=== PATIENT | male | born 1950 | race African-American/Black ===

== ENCOUNTER 2016-08-28 12:22 | Day surgery (SDC) | payer BC ==
[~2016-08-28] VITALS: Ht 180.3 cm; Wt 74.8 kg
[~2016-08-28 12:22] MED LIST: ALPR0.5T6 PO; ASPI-496 PO; BP Med; LISI-167 PO; OMEP-110 PO; ONDANSETRON 2MG/ML, 2ML ONE; PROPOFOL 10 MG/ML, 20ML ONE; SIMV20TA3 PO; SUCCINYLCHOLINE 20 MG/ML, 10ML ONE; TAMS-11 PO
[2016-08-28] MEDS ORDERED: AMLO5TAB2 PO (12:48)
[2016-08-28 12:50] VITALS: BP 135/86
[2016-08-28] MEDS ORDERED: LACTATED RINGERS 1,000 ML IV SCH (12:57)
[2016-08-28] MEDS ORDERED: FENTANYL PF 100 MCG/2ML IV PRN (14:00)
[2016-08-28] MEDS ORDERED: ONDANSETRON 2MG/ML, 2ML IVPush PRN (14:00)
[2016-08-28] MEDS ORDERED: HYDROmorphone 1 MG/ML, 1ML IV PRN (14:00)
[2016-08-28] MEDS ORDERED: LABETALOL 5MG/ML, 20ML IV PRN (14:00)
[2016-08-28] MEDS ORDERED: OXYcodone 5 MG/5 ML ORAL.SOL UDC PO PRN (14:00)
[2016-08-28] MEDS ORDERED: hydrALAzine 20 MG/ML, 1ML IV PRN (14:00)
[2016-08-28] MEDS ORDERED: ACETAMINOPHEN 650 MG/20.3 ML UDC ONE (15:29)
[2016-08-28] MEDS ORDERED: ACETAMINOPHEN 650 MG/20.3 ML UDC PO PRN (15:30)
[2016-08-28] MEDS ORDERED: ACETAMINOPHEN 325 MG TABLET ONE (15:30)
[2016-08-28] MEDS ORDERED: ONDANSETRON 2MG/ML, 2ML ONE (15:37)
[2016-08-28] MEDS ORDERED: hydrALAzine 20 MG/ML, 1ML ONE (15:51)
== END 2016-08-28 17:30 | disposition home or self-care (01) ==
LOC: OUT 12:22
PROVIDERS: ATTEND Internal Medicine Geriatric Medicine
DX: K83.1 Obstruction of bile duct (principal); K86.1 Other chronic pancreatitis; K86.89 Other specified diseases of pancreas; I47.1 Supraventricular tachycardia
CPT/HCPCS: 43238; 43276; 74328; 88172; 88173; 88177; 88307; C1769; C1894; C2625; J0330; J0360; J2405; J2704; J7120

== ENCOUNTER → 2016-08-30 | Outpatient (CLI) | payer BC ==
[~2016-08-30] MED LIST changes: +AMLO5TAB2 PO; +OMNIPAQUE 350 MG/ML, 100ML BOTTLE ONE; -ONDANSETRON 2MG/ML, 2ML ONE; -PROPOFOL 10 MG/ML, 20ML ONE; -SUCCINYLCHOLINE 20 MG/ML, 10ML ONE
== END | disposition home or self-care (01) ==
LOC: CFH 09:45
PROVIDERS: ATTEND Internal Medicine Hematology & Oncology
DX: D75.1 Secondary polycythemia (principal); N28.1 Cyst of kidney, acquired; M47.896 Other spondylosis, lumbar region; K83.8 Other specified diseases of biliary tract; M51.36 Other intervertebral disc degeneration, lumbar region
CPT/HCPCS: 74170; Q9967

== ENCOUNTER → 2016-09-19 | Outpatient (CLI) | payer BC ==
[~2016-09-19] MED LIST changes: +HYDROCHLOROTHIAZIDE; -OMNIPAQUE 350 MG/ML, 100ML BOTTLE ONE
[2016-09-19 09:24] LABS: ASPARTATE AMINO TRANSFERASE 18 U/L (15-37); BLOOD UREA NITROGEN 19 mg/dL (7-18)
== END | disposition home or self-care (01) ==
LOC: STAR 08:13
PROVIDERS: ATTEND Surgery
DX: C25.9 Malignant neoplasm of pancreas, unspecified (principal)
CPT/HCPCS: 36415; 80053; 85025; 85610

== ENCOUNTER 2016-09-26 05:27 | Day surgery (SDC) | payer BC ==
[~2016-09-26] VITALS: Ht 180.3 cm; Wt 78.0 kg
[2016-09-26] MEDS ORDERED: LACTATED RINGERS 1,000 ML IV SCH (06:08)
[2016-09-26 06:10] VITALS: BP 159/96
[2016-09-26] MEDS ORDERED: LIDOCAINE 1%, 2ML SQ PRN (06:30)
[2016-09-26] MEDS ORDERED: HEPARIN 1,000 UNITS/ML, 10ML ONE (06:56)
[2016-09-26] MEDS ORDERED: BUPIVACAINE/PF-EPI 0.5% 1:200K ONE ×2 (06:56→08:07)
[2016-09-26] MEDS ORDERED: MIDAZOLAM 1 MG/ML, 2ML ONE (07:24)
[2016-09-26] MEDS ORDERED: FENTANYL PF 250 MCG/5ML ONE (07:24)
[2016-09-26] MEDS ORDERED: MEPERIDINE/PF 25MG/0.5ML IVPush PRN (07:30)
[2016-09-26] MEDS ORDERED: EPHEDRINE 50 MG/ML, 1ML IVPush PRN (07:30)
[2016-09-26] MEDS ORDERED: HYDROmorphone 1 MG/ML, 1ML IV PRN (07:30)
[2016-09-26] MEDS ORDERED: PROMETHAZINE 25 MG/ML, 1ML IV PRN (07:30)
[2016-09-26] MEDS ORDERED: MIDAZOLAM 1 MG/ML, 2ML IV PRN (07:30)
[2016-09-26] MEDS ORDERED: ACETAMINOPHEN 325 MG TABLET PO PRN (07:30)
[2016-09-26] MEDS ORDERED: ONDANSETRON 2MG/ML, 2ML IVPush PRN (07:30)
[2016-09-26] MEDS ORDERED: LABETALOL 5MG/ML, 20ML IV PRN (07:30)
[2016-09-26] MEDS ORDERED: FENTANYL PF 100 MCG/2ML IV PRN (07:30)
[2016-09-26] MEDS ORDERED: OXYcodone 5 MG/5 ML ORAL.SOL UDC PO PRN (07:30)
[2016-09-26] MEDS ORDERED: hydrALAzine 20 MG/ML, 1ML IV PRN (07:30)
[2016-09-26] MEDS ORDERED: HYDROcodone/APAP 7.5-325MG/15ML UDC PO PRN (07:30)
[2016-09-26] MEDS ORDERED: KETOROLAC 30 MG/1 ML IV PRN (07:30)
[2016-09-26] MEDS ORDERED: DEXAMETHASONE 4 MG/ML, 1ML ONE (07:37)
[2016-09-26] MEDS ORDERED: PROPOFOL 10 MG/ML, 20ML ONE (07:37)
[2016-09-26] MEDS ORDERED: PROPOFOL 10 MG/ML, 50ML ONE (07:37)
[2016-09-26] MEDS ORDERED: CEFAZOLIN 1,000 MG ONE (07:37)
[2016-09-26] MEDS ORDERED: ONDANSETRON 2MG/ML, 2ML ONE (07:37)
== END 2016-09-26 10:30 | disposition home or self-care (01) ==
LOC: OUT 05:27
PROVIDERS: ATTEND Surgery
DX: C25.9 Malignant neoplasm of pancreas, unspecified (principal); I10 Essential (primary) hypertension; E78.5 Hyperlipidemia, unspecified; K21.9 Gastro-esophageal reflux disease without esophagitis; Z82.3 Family history of stroke
CPT/HCPCS: 36571; 77001; C1788; J0690; J1100; J1644; J2250; J2405; J2704; J3010; J7120

== ENCOUNTER 2017-01-07 10:52 | Inpatient (IN) | payer MEDICARE ==
[~2017-01-07] VITALS: Ht 180.3 cm; Wt 73.6 kg
[~2017-01-07 10:52] MED LIST changes: +CIPR500T3 PO; +HYDR12.58 PO; +METR500T PO; +ONDA4TAB7 PO
[2017-01-07] MEDS ORDERED: SODIUM CHLORIDE FLUSH 10ML SYR IVF ONE (12:00)
[2017-01-07 12:14] LABS: HEMOGLOBIN 15.8 g/dL (13.7-18.0); WHITE BLOOD COUNT 3.4 x10^3/uL (3.4-10)
[2017-01-07 12:25] LABS: ASPARTATE AMINO TRANSFERASE 156 U/L (15-37); BLOOD UREA NITROGEN 11 mg/dL (7-18)
[2017-01-07] MEDS ORDERED: SODIUM CHLORIDE 0.9% 1,000 ML IV ONE (15:01)
[2017-01-07] MEDS ORDERED: SODIUM CHLORIDE FLUSH 10ML SYR IVF PRN (15:30)
[2017-01-07 17:08] VITALS: BP 163/87
[2017-01-07 18:44] VITALS: BP 143/85
[2017-01-07] MEDS ORDERED: DIPHENHYDRAMINE 50 MG/ML, 1ML IVPush PRN (21:00)
[2017-01-07 21:08] VITALS: BP 140/86
[2017-01-07] MEDS ORDERED: METOCLOPRAMIDE 5 MG/ML, 2ML IVPush PRN (21:30)
[2017-01-07] MEDS ORDERED: morphine SULFATE 10 MG/ML, 1ML IVPush PRN (21:30)
[2017-01-07] MEDS ORDERED: ENALAPRILAT 1.25 MG/ML, 2ML IVPush PRN (21:30)
[2017-01-07] MEDS ORDERED: OXYcodone IR 5MG TABLET PO PRN (21:30)
[2017-01-07] MEDS ORDERED: PROMETHAZINE 25 MG/ML, 1ML IM PRN (21:30)
[2017-01-07] MEDS ORDERED: LABETALOL 5MG/ML, 20ML IVPush PRN (21:30)
[2017-01-07] MEDS ORDERED: ONDANSETRON 2MG/ML, 2ML IVPush PRN (21:30)
[2017-01-07] MEDS: SODIUM CHLORIDE 0.9% 1,000 ML IV SCH (21:51)
[2017-01-08 02:00] VITALS: BP 144/84
[2017-01-08 04:36] LABS: HEMATOCRIT 41.4 % (39.2-51.8); HEMOGLOBIN 13.7 g/dL (13.7-18.0); WHITE BLOOD COUNT 3.1 x10^3/uL (3.4-10)
[2017-01-08 04:44] LABS: BLOOD UREA NITROGEN 9 mg/dL (7-18)
[2017-01-08 04:48] LABS: ASPARTATE AMINO TRANSFERASE 170 U/L (15-37)
[2017-01-08] MEDS: SODIUM CHLORIDE 0.9% 1,000 ML IV SCH (07:30)
[2017-01-08] MEDS ORDERED: OMEPRAZOLE 20 MG CAPSULE.DR PO SCH (08:00)
[2017-01-08 08:15] VITALS: BP 159/87
[2017-01-08] MEDS ORDERED: HYDROCHLOROTHIAZIDE 12.5 MG CAPSULE PO SCH (09:00)
[2017-01-08] MEDS ORDERED: AMLODIPINE 5 MG TABLET PO SCH (09:00)
[2017-01-08] MEDS ORDERED: CEFD300C37 PO (11:02)
[2017-01-08] MEDS ORDERED: TRAM50TA2 PO ×2 (11:16→11:26)
[2017-01-08] MEDS ORDERED: POLY17PO5 PO (11:16)
== END 2017-01-08 12:15 | disposition home or self-care (01) | DRG 920 ==
LOC: OR 15:00 → EDIP 15:01 → OR 15:22 → SUATTDRO 16:49 → 4EST 16:54 → 3NW 20:58
PROVIDERS: ADMIT Internal Medicine; ATTEND Internal Medicine
DX: T85.590A Other mechanical complication of bile duct prosthesis, initial encounter (principal); K80.51 Calculus of bile duct without cholangitis or cholecystitis with obstruction; I47.1 Supraventricular tachycardia; I10 Essential (primary) hypertension; N39.0 Urinary tract infection, site not specified; E78.5 Hyperlipidemia, unspecified; E80.6 Other disorders of bilirubin metabolism; K21.9 Gastro-esophageal reflux disease without esophagitis; Y83.8 Other surgical procedures as the cause of abnormal reaction of the patient, or of later complication, without mention of misadventure at the time of the procedure; Y92.89 Other specified places as the place of occurrence of the external cause; Z82.3 Family history of stroke; Z82.49 Family history of ischemic heart disease and other diseases of the circulatory system; Z85.07 Personal history of malignant neoplasm of pancreas; Z92.21 Personal history of antineoplastic chemotherapy
CPT/HCPCS: 36415; 76700; 80053; 81001; 83605; 83690; 83735; 84100; 85025; 85610; 85730; 87040; 87086; 96360; 96361; J7030

== ENCOUNTER → 2017-09-27 | Outpatient (CLI) | payer MEDICARE ==
[~2017-09-27] MED LIST changes: +CEFD300C37 PO; +OMNIPAQUE 350 MG/ML, 100ML BOTTLE ONE; +POLY17PO5 PO; +TRAM50TA2 PO
== END | disposition home or self-care (01) ==
LOC: CFH 08:37
PROVIDERS: ATTEND Internal Medicine Hematology & Oncology
DX: C25.9 Malignant neoplasm of pancreas, unspecified (principal); D75.1 Secondary polycythemia; N28.1 Cyst of kidney, acquired
CPT/HCPCS: 74160; 82565; Q9967

== ENCOUNTER → 2017-12-02 | Outpatient (CLI) | payer MEDICARE | END | disposition home or self-care (01) | LOC: CFH 09:28 | PROVIDERS: ATTEND Internal Medicine Hematology & Oncology | DX: N28.1 Cyst of kidney, acquired (principal); R59.0 Localized enlarged lymph nodes; C25.9 Malignant neoplasm of pancreas, unspecified; D75.1 Secondary polycythemia | CPT/HCPCS: 74170; 82565; Q9967 ==

== ENCOUNTER → 2018-06-06 | Outpatient (CLI) | payer MEDICARE ==
[~2018-06-06] MED LIST changes: +AMLO-150 PO; -AMLO5TAB2 PO; -HYDR12.58 PO; +HYDROCHLOROTH12.5 MG PO
== END | disposition home or self-care (01) ==
LOC: CFH 11:39
PROVIDERS: ATTEND Internal Medicine Hematology & Oncology
DX: N28.1 Cyst of kidney, acquired (principal); D75.1 Secondary polycythemia; I70.0 Atherosclerosis of aorta; M51.36 Other intervertebral disc degeneration, lumbar region; Z90.411 Acquired partial absence of pancreas; Z85.07 Personal history of malignant neoplasm of pancreas
CPT/HCPCS: 71260; 74177; Q9967

== ENCOUNTER 2019-05-23 09:55 | Emergency (ER) | payer MEDICARE ==
[~2019-05-23] VITALS: Ht 180.3 cm; Wt 72.0 kg
[~2019-05-23 09:55] MED LIST changes: -OMNIPAQUE 350 MG/ML, 100ML BOTTLE ONE
--- NOTE | 2019-05-23 10:20 | NUR ---
PT AMBULATORY WITH STEADY GAIT TO ROOM. PT GIVEN GOWN AND ASKED TO CHANGE.
--- NOTE | 2019-05-23 10:27 | NUR ---
68 Y/O MALE PRESENTS TO ED WITH C/O "STARTED WITH THE FLU. THEN A SINUS INFECTION AND THEN PNA. IT WAS TWO WEEKS AGO. A CT WAS DONE ON THE . THEY TOLD ME I HAD PNA. I'VE BEEN ON ABX AND STEROIDS. AT THE END IT STARTED COMING BACK AND IT DIDN'T GO AWAY. THE PAIN WAS IN THE LOWER BACK AND IN THE MIDDLE ON THE RIGHT." PT PLACED ON CONT PULSE OX,NIBP, SALES REPRESENTATIVE EDUCATION COURSES. NO C/O N/V/D, TRAUMA, SYNCOPE, CP.
--- NOTE | 2019-05-23 10:29 | NUR ---
NO C/O CP OR COUGING.
[2019-05-23 11:07] LABS: BASOPHILS # (AUTO) 0.01 x10^3/uL (0-0.1); BASOPHILS % (AUTO) 0 % (0-1); EOSINOPHILS # (AUTO) 0.04 x10^3/uL (0-0.4); EOSINOPHILS % (AUTO) 1 % (1-7); LYMPHOCYTES # (AUTO) 1.11 x10^3/uL (1-3.4); LYMPHOCYTES % (AUTO) 18 % (22-44); MD NO; MEAN CORPUSCULAR HEMOGLOBIN 28.3 pg (27.5-34.5); MEAN CORPUSCULAR VOLUME 88.6 fL (81-97); MEAN PLATELET VOLUME 8.2 fL (7.4-10.4); MONOCYTES # (AUTO) 0.52 x10^3/uL (0.2-0.8); MONOCYTES % (AUTO) 9 % (2-9); NEUTROPHILS # (AUTO) 4.44 x10^3/uL (1.8-6.8); NEUTROPHILS % (AUTO) 73 % (42-75); PLATELET COUNT 100 x10^3/uL (130-400); RED BLOOD COUNT 6.39 x10^6/uL (4.38-5.82); RED CELL DISTRIBUTION WIDTH 16.1 % (9.4-14.8)
[2019-05-23 11:19] LABS: ANION GAP 5 mmol/L (5-15); CALCIUM 8.1 mg/dL (8.5-10.1); CHLORIDE 104 mmol/L (98-107); CREATININE 0.98 mg/dL (0.7-1.3)
[2019-05-23 11:23] LABS: TROPONIN I < 0.015 ng/mL (0.000-0.045)
[2019-05-23 11:50] VITALS: BP 97/62
--- NOTE | 2019-05-23 11:50 | NUR ---
BEDSIDE REPORT TO [facility].
--- NOTE | 2019-05-23 12:07 | NUR ---
ERP AT FOR RECHECK. WATER PROVIDED TO PT.
--- NOTE | 2019-05-23 12:30 | NUR ---
D/C INSTRUCTIONS & F/U APPT RV'WD WITH PT, HE VERBALIZES UNDERSTANDING. INSTRUCTED PT TO REST, DRINK PLENTY OF FLUIDS, AND COUGH/DEEP BREATHE. PT AMBULATED OUT OF ED WITH WITHOUT DIFFICULTY.
== END 2019-05-23 12:42 | disposition home or self-care (01) ==
LOC: ED 12:10
DX: R53.1 Weakness (principal); R05 Cough; M79.10 Myalgia, unspecified site; I10 Essential (primary) hypertension; K21.9 Gastro-esophageal reflux disease without esophagitis
CPT/HCPCS: 36415; 71045; 80048; 82040; 84484; 85025; 93005; 99284

== ENCOUNTER → 2020-01-05 | Outpatient (CLI) | payer MEDICARE ==
[~2020-01-05] MED LIST changes: +OMNIPAQUE 350 MG/ML, 100ML BOTTLE ONE; +SIMV20TA19 PO; -SIMV20TA3 PO
== END | disposition home or self-care (01) ==
LOC: CFH 11:00
PROVIDERS: ATTEND Internal Medicine Hematology & Oncology
DX: C25.9 Malignant neoplasm of pancreas, unspecified (principal); D75.1 Secondary polycythemia; R59.0 Localized enlarged lymph nodes
CPT/HCPCS: 71260; 74177; Q9967

== ENCOUNTER → 2020-02-18 | Outpatient (CLI) | payer MEDICARE ==
[~2020-02-18] MED LIST changes: -OMNIPAQUE 350 MG/ML, 100ML BOTTLE ONE
== END | disposition home or self-care (01) ==
LOC: PETCFH 09:17
PROVIDERS: ATTEND Internal Medicine Hematology & Oncology
DX: C25.9 Malignant neoplasm of pancreas, unspecified (principal); D75.1 Secondary polycythemia
CPT/HCPCS: 78815; A9552